=== PATIENT | female | born 1970 | race Caucasian/White ===

== ENCOUNTER 2022-05-12 10:14 | Emergency (ER) | payer BC ==
[~2022-05-12] VITALS: Ht 167.6 cm; Wt 88.0 kg
[2022-05-12 10:15] VITALS: BP_SYST 144
[2022-05-12 11:05] LABS: BASOPHILS # (AUTO) 0.1 K/uL (0.0-0.2); BASOPHILS % (AUTO) 0.7 % (0.0-2.0); EOSINOPHILS % (AUTO) 0.3 % (0.0-4.0); HEMATOCRIT 37.8 % (36-48); HEMOGLOBIN 13.3 g/dL (12.0-16.0); LYMPHOCYTES % (AUTO) 6.9 % (20.5-51.5); MEAN CORPUSCULAR HEMOGLOBIN 32 pg (27-31); MEAN CORPUSCULAR HGB CONC 35 % (32-36); MEAN CORPUSCULAR VOLUME 90 fL (79.0-98.0); MONOCYTES # (AUTO) 1.1 K/uL (0.0-1.0); MONOCYTES % (AUTO) 7.9 % (1.7-9.3); NEUTROPHILS # (AUTO) 11.9 K/uL (1.8-7.7); NEUTROPHILS % (AUTO) 84.2 % (40.0-70.0); PLATELET COUNT (AUTO) 190 K/uL (130-430); RED CELL DISTRIBUTION WIDTH 13.4 % (9.0-15.0); WHITE BLOOD COUNT (AUTO) 14.2 K/uL (4.8-10.8)
[2022-05-12 11:13] LABS: CALCIUM 8.5 mg/dL (8.4-11.0); CREATININE 0.87 mg/dL (0.55-1.30)
[2022-05-12] MEDS ORDERED: ONDANSETRON HCL 4 MG/2 ML VIAL IVP ONE (11:15)
[2022-05-12] MEDS ORDERED: NACL 0.9% 1,000 ML IV ONE (11:15)
[2022-05-12 11:17] LABS: ALBUMIN 3.8 g/dL (3.4-4.8); TOTAL BILIRUBIN 1.2 mg/dL (0.0-1.0)
[2022-05-12 13:38] VITALS: BP_SYST 145
== END 2022-05-12 13:39 | disposition home or self-care (01) ==
LOC: SED 10:14
DX: R10.30 Lower abdominal pain, unspecified (principal); R11.2 Nausea with vomiting, unspecified; Z79.899 Other long term (current) drug therapy
CPT/HCPCS: 99284; 74176; 96374; 96361; 80053; 83690; 85025; 36415; 76376; 81002; 81025; 83605; J2405; J7030